=== PATIENT | female | born 1985 | race Caucasian/White ===

== ENCOUNTER → 2017-10-25 | Outpatient (CLI) | payer OTHER | END | disposition home or self-care (01) | LOC: KCIC CT 11:00 | DX: R51 Headache (principal) | CPT/HCPCS: 70450 ==

== ENCOUNTER 2021-09-08 03:19 | Emergency (ER) | payer BC, OTHER ==
[~2021-09-08] VITALS: Ht 180.3 cm; Wt 86.4 kg
--- NOTE | 2021-09-08 04:28 | PHYS DOC ---
General Adult EDM: Chief Complaint: ABDOMINAL PAIN HPI: HPI: Patient is a 36 year old female who presents with right lower quadrant pain that woke her from sleep. 220AM the pain started. RLQ, vomiting, worse with movement no urinary sx (dysuria, urgency, frequency, hematuria) no vaginal discharge or bleeding. Does report that she had an IUD placed approximately 1.5 months ago. States that she had 3-4 weeks of heavy vaginal bleeding and uterine cramping following IUD placement. She describes it was a traumatic placement and required significant cervical manipulation for placement. (ZAHRA MONTERROSO MD) Review of Systems: Review of Systems: Constitutional: Denies fever or chills. [] Eyes: Denies change in visual acuity. [] HENT: Denies nasal congestion or sore throat. [] Respiratory: Denies cough or shortness of breath. [] Cardiovascular: Denies chest pain or edema. [] GI: Reports abdominal pain, nausea, vomiting. Denies bloody stools or diarrhea. [] : Denies dysuria. [] Musculoskeletal: Denies back pain or joint pain. [] Integument: Denies rash. [] Neurologic: Denies headache, focal weakness or sensory changes. [] Endocrine: Denies polyuria or polydipsia. [] Lymphatic: Denies swollen glands. [] Psychiatric: Denies depression or anxiety. [] (ZAHRA MONTERROSO MD) Heart Score: C/O Chest Pain: No Risk Factors: Risk Factors: DM, Current or recent (<one month) smoker, HTN, HLP, family history of CAD, obesity. Risk Scores: Score 0 - 3: 2.5% MACE over next 6 weeks - Discharge Home Score 4 - 6: 20.3% MACE over next 6 weeks - Admit for Clinical Observation Score 7 - 10: 72.7% MACE over next 6 weeks - Early Invasive Strategies (ZAHRA MONTERROSO MD) Allergies: Allergies: Allergies Coded Allergies Type Severity Reaction Last Updated Verified No Known Drug Allergies 09/08/21 No (ZAHRA MONTERROSO MD) Physical Exam: PE: Constitutional: Well developed, well nourished, no acute distress, non-toxic appearance. [] HENT: Normocephalic, atraumatic, bilateral external ears normal, oropharynx moist, no oral exudates, nose normal. [] Eyes: PERRLA, EOMI, conjunctiva normal, no discharge. [] Neck: Normal range of motion, no tenderness, supple, no stridor. [] Cardiovascular:Heart rate regular rhythm, no murmur [] Lungs & Thorax: Bilateral breath sounds clear to auscultation [] Abdomen: Bilateral lower quadrant tenderness to palpation, pain in the right lower quadrant with palpation of the left lower quadrant (positive Rovsing). Involuntary guarding present. Skin: Warm, dry, no erythema, no rash. [] Back: No tenderness, no CVA tenderness. [] Extremities: No tenderness, no cyanosis, no clubbing, ROM intact, no edema. [] Neurologic: Alert and oriented X 3, normal motor function, normal sensory function, no focal deficits noted. [] Psychologic: Affect normal, judgement normal, mood normal. [] (ZAHRA MONTERROSO MD) Current Patient Data: Labs: Laboratory Tests Test 09/08/21 03:57 POC Urine HCG, Qualitative Hcg negative (Negative) (ZAHRA MONTERROSO MD) EKG: EKG: [] (ZAHAR MONTERROSO MD) Radiology/Procedures: Radiology/Procedures: [] Impression: [facility] [id number] [place], [place] [id number] IMAGING REPORT Signed PATIENT: TORI GREEN ACCOUNT: [id number] : 1985 LOCATION: ER AGE: 36 SEX: F EXAM STATUS: PRE ER ORD. PHYSICIAN: ZAHRA MONTERROSO MD REASON: rlq pain;OMNI 300, 75ML PROCEDURE: CT ABD PELV W/ IV CONTRST ONLY PQRS Compliance Statement: One or more of the following individualized dose reduction techniques were utilized for this examination: 1. Automated exposure control 2. Adjustment of the mA and/or kV according to patient size 3. Use of iterative reconstruction technique CT ABDOMEN+PELVIS W Clinical Indication: Reason: rlq pain; Comparison: None. Technique: Helical CT imaging of the abdomen and pelvis is performed after 75 cc of Omnipaque 300 IV contrast. Oral contrast not administered. Findings: Lung bases are clear. Cardiac size normal. There is small amount of fluid in Morison's pouch. There is trace anterior perihepatic free fluid. The liver, gallbladder, spleen, pancreas, adrenal glands, abdominal aorta, and kidneys are normal. The stomach is unremarkable. There is no dilated small bowel. The appendix is normal caliber. No colon wall thickening is identified. There is mild free fluid inferior right paracolic gutter. No abdominal adenopathy is seen. The urinary bladder is normal. There is moderate pelvic free fluid. Question a 4.9 cm left adnexal cyst. There is a 1.8 cm peripherally enhancing left ovary functional cysts. IUD is seen in the uterus. IUD is probably malpositioned, one of the T components extends into the anterior myometrium and may reach the serosal surface. No acute bone abnormality. IMPRESSION: 1. There is moderate pelvic free fluid. There is small left ovary functional cyst. Question left adnexal cyst. IUD is malpositioned in the uterus. Recommend pelvic ultrasound. 2. There is mild free fluid anterior perihepatic, Morison's pouch, and inferior right paracolic gutter. 3. The appendix is normal. Electronically signed by: Alessio Castillo MD (09/08/2021 5:32 AM) [facility] DICTATED and SIGNED BY: ALESSIO CASTILLO MD DATE: 09/08/21 [id number] (ZAHRA MONTERROSO MD) Radiology/Procedures: IMAGING REPORT Signed PATIENT: TORI GREEN ACCOUNT: [id number] : 1985 LOCATION: ER AGE: 36 SEX: F EXAM STATUS: REG ER ORD. PHYSICIAN: ZAHRA MONTERROSO MD REASON: IUD malposition, rlq pain PROCEDURE: PELVIS COMPLETE US PELVIS COMPLETE: 09/08/2021 6:14 AM INDICATION: 36 years old Female. IUD malposition,Right lower quadrant pain. COMPARISON: None. TECHNIQUE: Transabdominal and transvaginal sonographic evaluation of the pelvis was performed. Grayscale, color Doppler and spectral waveform analysis were utilized. FINDINGS: UTERUS: IUD is visualized within the lower uterine segment and cervix. Size: 7.7 x 5.4 x 4.8 cm. Masses: None. Endometrium: 4 mm. No suspicious vascularity is identified. RIGHT OVARY: 2.7 x 2.7 x 1.7 cm. Ovary is normal in appearance. LEFT OVARY: 5.4 x 2.5 x 2.4 cm. There is a crenulated cyst in left ovary measuring 4.5 x 1.5 x 1.3 cm with internal echoes. Arterial and venous waveform are identified within the ovaries bilaterally at the time of imaging. FREE FLUID: There is a moderate amount of free fluid within the pelvis, greater than expected for physiologic reasons. URINARY BLADDER: Unremarkable. IMPRESSION: IUD is identified at the level of the cervix extending partly to the lower uterine segment. Perfusion is noted to the ovaries bilaterally at the time of imaging. Crenulated cyst in the left ovary measures 4.5 x 1.5 x 1.3 cm with internal echoes suggestive of a collapsed corpus luteal cyst. Moderate volume free fluid identified within the pelvis predominantly simple. Electronically signed by: Alejandro Antonio MD (09/08/2021 7:10 AM) [facility] DICTATED and SIGNED BY: ALEJANDRO ANTONIO MD DATE: 09/08/21 [id number] (IDALMIS TRIPATHI DO) Course & Med Decision Making: Course & Med Decision Making Pertinent Labs and Imaging studies reviewed. (See chart for details) Patient a 36-year-old female presents with right lower quadrant pain that was abrupt in onset starting this morning at 2:20 AM. Does state that she had an IUD placement (Mirena) proximally 1.5 months ago, and states that she had heavy bleeding and vaginal cramping following the insertion. Pain had improved over the past 1 to 2 weeks. On arrival is afebrile, hemodynamically stable. Appears very uncomfortable, and has tenderness primarily in the right lower quadrant. DDx included ovarian torsion, IUD perforation of the uterus, appendicitis. CT shows pelvic free fluid and malposition of the IUD, but unclear whether perforated. Pelvic ultrasound ordered. Patient states her pain is improved after IV morphine. Patient will be signed out to oncoming attending with ultimate plan of disposition pending. [id number] (ZAHRA MONTERROSO MD) Course & Med Decision Making This patient was initially seen by Dr. Monterroso. Please see his note for further details. I assumed care at 0600 today. Ultrasound shows IUD is in place, no evidence of perforation, though the IUD does appear to replace lower in the cervix. Ovarian cyst is noted, pelvic free fluid is noted. I have discussed all of the findings, differential diagnosis and plan of care with the patient. She was resting comfortably and reports no further pain at this time. She reports that she had this placed sometime in June at an outpatient [facility] [facility] office, which is nearby. I encouraged her to reach out to this office to discuss IUD placement and her pain. No current indication for further invasive exams, imaging or admission. She reports that she has pain medication at home, so she declines prescriptions for discharge. She also has a primary care physician with whom she can follow-up. I asked the CDs be made of her imaging studies for her to take to her [facility] office and primary care physician office. (IDALMIS TRIPATHI DO) Dragon Disclaimer: Dragon Disclaimer: This electronic medical record was generated, in whole or in part, using a voice recognition dictation system. (ZAHRA MONTERROSO MD) Departure Departure Impression: Primary Impression: RLQ abdominal pain Additional Impressions: Left ovarian cyst Free fluid in pelvis IUD (intrauterine device) in place Disposition: 01 HOME / SELF CARE / HOMELESS Condition: STABLE Referrals: NO PCP (PCP) Patient Instructions: Levonorgestrel intrauterine device (IUD), Ovarian Cyst Additional Instructions: Your IUD is placed in your uterus, and is positioned lower, and the cervix. No evidence of perforation of your uterus based on ultrasound reports. You do have a left ovarian cyst and a small amount of free fluid in your pelvis. You have good blood flow to both ovaries on your ultrasound. I recommend you contact your repacker to discuss IUD positioning, I recommend calling this week. Return to the ER for uncontrolled vomiting, more severe pain, fever 100.4 or higher, heavy or uncontrolled bleeding or if you have any other concerns. I would recommend adhering to pelvic rest, abstaining from intercourse at this time. You may take your previously prescribed medications from your primary care doctor as needed. ZAHRA MONTERROSO MD Sep 08, 2021 04:28 IDALMIS TRIPATHI DO Sep 08, 2021 08:16
[2021-09-08 04:30] LABS: BILIRUBIN,URINE NEGATIVE (NEG); CLARITY,URINE CLEAR; COLOR,URINE YELLOW; NITRITE,URINE NEGATIVE (NEG); PROTEIN,URINE NEGATIVE (NEG-TRACE)
[2021-09-08] MEDS ORDERED: MORPHINE SULFATE 4 MG/ML INJ. IVP ONE (04:30)
[2021-09-08] MEDS ORDERED: ONDANSETRON PF 4 MG/2 ML VIAL. IVP ONE (04:30)
[2021-09-08 04:40] LABS: BASO # 0.1 x10^3/uL (0.0-0.2); BASO % 1 % (0-3); EOS # 0.2 x10^3/uL (0.0-0.7); EOS % 2 % (0-3); HEMATOCRIT 40.3 % (36.0-47.0); HEMOGLOBIN 13.5 g/dL (12.0-15.5); LYMPH # 1.4 x10^3/uL (1.0-4.8); LYMPH % 13 % (24-48); MEAN CORPUSCULAR HEMOGLOBIN 30 pg (25-35); MEAN CORPUSCULAR HGB CONC 33 g/dL (31-37); MEAN CORPUSCULAR VOLUME 91 fL (79-100); MONO # 0.7 x10^3/uL (0.0-1.1); MONO % 7 % (0-9); NEUT # 8.2 x10^3/uL (1.8-7.7); NEUT % 77 % (31-73); PLATELET COUNT 253 x10^3/uL (140-400); RED BLOOD COUNT 4.43 x10^6/uL (3.50-5.40); RED CELL DISTRIBUTION WIDTH 13.1 % (11.5-14.5); WHITE BLOOD COUNT 10.7 x10^3/uL (4.0-11.0)
[2021-09-08 04:44] LABS: BACTERIA,URINE 0 /HPF (0-FEW); RBC,URINE OCC /HPF (0-2)
[2021-09-08] MEDS ORDERED: IOHEXOL 300 MG/ML 100ML VIAL. IV ONE (04:45)
[2021-09-08 04:49] LABS: CALCIUM 8.4 mg/dL (8.5-10.1); CREATININE 0.9 mg/dL (0.6-1.0); GFR 71.7; POTASSIUM 3.9 mmol/L (3.5-5.1)
[2021-09-08 04:56] LABS: ALBUMIN 3.8 g/dL (3.4-5.0); ALBUMIN/GLOBULIN RATIO 1.1 (1.0-1.7); TOTAL BILIRUBIN 0.5 mg/dL (0.2-1.0); TOTAL PROTEIN 7.2 g/dL (6.4-8.2)
[2021-09-08] MEDS ORDERED: CONTRAST GIVEN. MC PRN (05:00)
--- NOTE | 2021-09-08 05:35 | RAD ---
PQRS Compliance Statement: One or more of the following individualized dose reduction techniques were utilized for this examinat ion: 1. Automated exposure control 2. Adjustment of the mA and/or kV according to patient size 3. Use of iterative reconstruction technique CT ABDOMEN+PELVIS W Clinical Indication: Reason: rlq pain; Comparison: None. Technique: Helical CT imaging of the abdomen and pelvis is performed after 75 cc of Omnipaque 300 IV contrast. Oral contrast not administered. Findings: Lung bases are clear. Cardiac size normal. There is small amount of fluid in Morison's pouch. There is trace anterior perihepatic free fluid. Th e liver, gallbladder, spleen, pancreas, adrenal glands, abdominal aorta, and kidneys are normal. The stomach is unremarkable. There is no dilated small bowel. The appendix is normal caliber. No colo n wall thickening is identified. There is mild free fluid inferior right paracolic gutter. No abdomin al adenopathy is seen. The urinary bladder is normal. There is moderate pelvic free fluid. Question a 4.[address] There is a 1.8 cm peripherally enhancing left ovary functional cysts. IUD is seen in the uterus. IUD is probably malpositioned, one of the T components extends into the anterior myometrium and may r each the serosal surface. No acute bone abnormality. IMPRESSION: 1. There is moderate pelvic free fluid. There is small left ovary functional cyst. Question left adn exal cyst. IUD is malpositioned in the uterus. Recommend pelvic ultrasound. 2. There is mild free fluid anterior perihepatic, Morison's pouch, and inferior right paracolic gutt er. 3. The appendix is normal. Electronically signed by: Alessio Castillo MD (09/08/2021 5:32 AM) [facility]
[2021-09-08 05:48] VITALS: BP 102/60
--- NOTE | 2021-09-08 07:12 | RAD ---
US PELVIS COMPLETE: 09/08/2021 6:14 AM INDICATION: 36 years old Female. IUD malposition,Right lower quadrant pain. COMPARISON: None. TECHNIQUE: Transabdominal and transvaginal sonographic evaluation of the pelvis was performed. Priscila piotr, color Doppler and spectral waveform analysis were utilized. FINDINGS: UTERUS: IUD is visualized within the lower uterine segment and cervix. Size: 7.7 x 5.4 x 4.8 cm. Masses: None. Endometrium: 4 mm. No suspicious vascularity is identified. RIGHT OVARY: 2.7 x 2.7 x 1.7 cm. Ovary is normal in appearance. LEFT OVARY: 5.4 x 2.5 x 2.4 cm. There is a crenulated cyst in left ovary measuring 4.5 x 1.5 x 1.3 c m with internal echoes. Arterial and venous waveform are identified within the ovaries bilaterally at the time of imaging. FREE FLUID: There is a moderate amount of free fluid within the pelvis, greater than expected for phy siologic reasons. URINARY BLADDER: Unremarkable. IMPRESSION: IUD is identified at the level of the cervix extending partly to the lower uterine segment. Perfusion is noted to the ovaries bilaterally at the time of imaging. Crenulated cyst in the left ovary measures 4.5 x 1.5 x 1.3 cm with internal echoes suggestive of a co llapsed corpus luteal cyst. Moderate volume free fluid identified within the pelvis predominantly sim ple. Electronically signed by: Yanique Mirza MD (09/08/2021 7:10 AM) [facility]
== END 2021-09-08 09:14 | disposition home or self-care (01) ==
LOC: ER 03:19
DX: N83.202 Unspecified ovarian cyst, left side (principal); R10.31 Right lower quadrant pain; Z97.5 Presence of (intrauterine) contraceptive device
CPT/HCPCS: 36415; 74177; 76856; 80053; 81001; 81025; 85025; 96374; 96375; 99285; J2270; J2405; Q9967